=== PATIENT | female | born 1965 | race Caucasian/White ===

== ENCOUNTER → 2017-08-11 | Outpatient (CLI) | payer BC ==
--- NOTE | 2017-08-12 13:33 | MM ---
Reason for exam: screening (asymptomatic). Last mammogram was performed 2 years and 4 months ago. Physical Findings: A clinical breast exam by your physician is recommended on an annual basis and results should be correlated with mammographic findings. MG Screening Mammo w CAD Bilateral CC and MLO view(s) were taken. Prior study comparison: April 16, 2015, mammogram, performed at [facility]. October 20, 2013, mammogram, performed at [facility]. June 10, 2012, mammogram. No significant changes when compared with prior studies. ASSESSMENT: Benign, BI-RAD 2 RECOMMENDATION: Routine screening mammogram of both breasts in 1 year.
== END | disposition home or self-care (01) ==
LOC: RADMAMWWP 15:01
PROVIDERS: ATTEND Family Medicine
DX: Z12.31 Encounter for screening mammogram for malignant neoplasm of breast (principal)
CPT/HCPCS: 77067

== ENCOUNTER → 2019-05-26 | Outpatient (CLI) | payer BC ==
--- NOTE | 2019-05-26 15:42 | US ---
EXAMINATION TYPE: US pelvis complete transvag DATE OF EXAM: 05/26/2019 COMPARISON: NONE CLINICAL HISTORY: R10.2 pelvic and perineal pain. Hx ablation- irregular bleeding. Patient states paige ving pain that shoots down leg. TECHNIQUE: Transvaginal (TV) and Transabdominal (TA) . Transabdominal sonographic images of the pel vis were acquired. Transvaginal sonographic images were medically necessary to better assess the fol lowing anatomy: Ovaries Date of LMP: Unknown, EXAM MEASUREMENTS: Uterus: 8.9 x 4.7 x 3.0 cm Endometrial Stripe: 0.3m Left Ovary: 2.1 x 1.4 x 1.5 cm 1. Uterus: Anteverted Multiple lesions seen through out uterus. Largest measured. Fundal region - 2.3 x 1.7 x 1.5 cm. Mid uterus - 1.6 x 1.5 x 1.1 cm 2. Endometrium: limited visualization 3. Right Ovary: Obscured by overlying bowel gas 4. Left Ovary: appears heterogenous. 5. Bilateral Adnexa: wnl 6. Posterior cul-de-sac: no free fluid Cervix- nabothian cysts IMPRESSION: 1. Leiomyomatous change of the uterus.
== END | disposition home or self-care (01) ==
LOC: RADUSWWP 14:47
PROVIDERS: ATTEND Family Medicine
DX: D25.9 Leiomyoma of uterus, unspecified (principal)
CPT/HCPCS: 76830; 76856

== ENCOUNTER → 2019-06-27 | Outpatient (CLI) | payer BC ==
--- NOTE | 2019-06-29 08:49 | MM ---
Reason for exam: screening (asymptomatic). Last mammogram was performed 1 year and 10 months ago. History: Took hormonal contraceptives for 5 years. Physical Findings: A clinical breast exam by your physician is recommended on an annual basis and results should be correlated with mammographic findings. MG 3D Screening Mammo W/Cad Bilateral CC and MLO view(s) were taken. Prior study comparison: August 11, 2017, bilateral MG screening mammo w CAD. April 16, 2015, mammogram, performed at [facility]. The breast tissue is heterogeneously dense. This may lower the sensitivity of mammography. New areas of asymmetric density, primarily on the CC views, are present likely secondary to patient's reported weight loss. Further evaluation is recommended. No clear correlate on the MLO views. ASSESSMENT: Incomplete: need additional imaging evaluation, BI-RAD 0 RECOMMENDATION: Special view mammogram of both breasts. (3D) If lesion persists on supplemental views, image directed ultrasound is recommended. [facility] will attempt to contact patient to return for supplemental views and ultrasound if indicated.
== END | disposition home or self-care (01) ==
LOC: RADMAMWWP 16:42
PROVIDERS: ATTEND Family Medicine
DX: Z12.31 Encounter for screening mammogram for malignant neoplasm of breast (principal)
CPT/HCPCS: 77063; 77067

== ENCOUNTER → 2019-07-07 | Outpatient (CLI) | payer BC ==
--- NOTE | 2019-07-07 16:00 | MM ---
Reason for exam: additional evaluation requested from abnormal screening. Last mammogram was performed less than 1 month ago. History: Took hormonal contraceptives for 5 years. Physical Findings: Nurse did not find any significant physical abnormalities on exam. MG 3D Work Up W/Cad LATASHA Bilateral spot compression CC view(s) were taken. LM view(s) were taken of the right breast. ML view(s) were taken of the left breast. Prior study comparison: June 27, 2019, bilateral MG 3d screening mammo w/cad. August 11, 2017, bilateral MG screening mammo w CAD. The breast tissue is heterogeneously dense. This may lower the sensitivity of mammography. No significant new findings when compared with previous films. These results were verbally communicated with the patient and result sheet given to the patient on 07/07/19. ASSESSMENT: Probably benign, BI-RAD 3 RECOMMENDATION: Follow-up diagnostic mammogram of both breasts in 6 months.
== END | disposition home or self-care (01) ==
LOC: RADMAMWWP 14:57
PROVIDERS: ATTEND Family Medicine
DX: R92.8 Other abnormal and inconclusive findings on diagnostic imaging of breast (principal)
CPT/HCPCS: 77062; 77066

== ENCOUNTER 2019-08-17 10:17 | Emergency (ER) | payer BC ==
[2019-08-17 10:33] VITALS: TEMP 98.5
[2019-08-17] MEDS ORDERED: SODIUM CHLORIDE 0.9% 1,000 ML IV STA (10:45)
--- NOTE | 2019-08-17 10:53 | ED ---
General Adult HPI - General Chief complaint: Upper Respiratory Infection Stated complaint: Flu Symptoms Time Seen by Provider: 08/17/19 10:36 Source: patient Mode of arrival: ambulatory Limitations: no limitations - History of Present Illness Initial comments: Patient is a 54-year-old female presenting to emergency Department with the chief complaint of flu symptoms. Patient states symptoms began yesterday with a sore throat and a nonproductive cough. States she also had a fever at home which she was able to control with Tylenol and Motrin. Patient states this when she felt weak with generalized body aches. Patient states she contacted EMS. Denies any dizziness or light headedness at this moment. Patient is a smoker. No history of asthma. No chest pain shortness of breath back and abdominal pain nausea vomiting diarrhea. No blurry vision, onesided weakness or paresthesias - Related Data Home Medications Medication Instructions Recorded Confirmed Thyroid,Pork [Nature-Throid] 65 mg PO DAILY 11/20/14 11/20/14 Previous Rx's Medication Instructions Recorded Ciprofloxacin HCl [Cipro] 500 mg PO Q12HR #14 tablet 11/20/14 Phenazopyridine [Pyridium] 100 mg PO TID #6 tablet 11/20/14 Oseltamivir [Tamiflu] 75 mg PO Q12HR #10 cap 08/17/19 Allergies Allergy/AdvReac Type Severity Reaction Status Date / Time Penicillins Allergy Rash/Hives Verified 08/17/19 10:27 Sulfa (Sulfonamide Allergy Unknown Verified 08/17/19 10:27 Antibiotics) Review of Systems ROS Statement: Those systems with pertinent positive or pertinent negative responses have been documented in the HPI. ROS Other: All systems not noted in ROS Statement are negative. Past Medical History Past Medical History: Thyroid Disorder History of Any Multi-Drug Resistant Organisms: None Reported Past Surgical History: Section Past Psychological History: No Psychological Hx Reported Smoking Status: Current every day smoker Past Alcohol Use History: None Reported Past Drug Use History: None Reported General Exam Limitations: no limitations General appearance: alert, in no apparent distress Head exam: Present: atraumatic, normocephalic, normal inspection Eye exam: Present: normal appearance, PERRL, EOMI Pupils: Present: normal accommodation ENT exam: Present: normal exam, normal oropharynx, mucous membranes moist, TM's normal bilaterally, normal external ear exam Neck exam: Present: normal inspection, full ROM Respiratory exam: Present: normal lung sounds bilaterally. Absent: respiratory distress, wheezes, rales Cardiovascular Exam: Present: regular rate, normal rhythm, normal heart sounds Extremities exam: Present: normal inspection, full ROM Back exam: Present: normal inspection, full ROM Neurological exam: Present: alert, oriented X3 Psychiatric exam: Present: normal affect, normal mood Skin exam: Present: warm, dry, intact, normal color Course Vital Signs 08/17/19 10:27 Temperature 98.5 F Pulse Rate 79 Respiratory 18 Rate Blood Pressure 116/73 O2 Sat by Pulse 99 Oximetry Medical Decision Making - Medical Decision Making Patient is 54-year-old female presenting to the emergency family with a chief complaint of flu symptoms. Physical examination is unremarkable. Chest x-ray is unremarkable. Patient is influenza A positive. Patient given 1 L bolus fluids. Patient reports improvement in symptoms. Patient discharged with Tamiflu. Advised to alternate between Tylenol and Motrin for antipyretic control. She was advised to drink lots of liquids. Return parameters discussed with patient was understanding and agreeable. Case discussed with physician. - Lab Data Lab Results 08/17/19 Range/Units 10:45 Influenza Type A RNA Detected H (Not Detectd) Influenza Type B (PCR) Not Detected (Not Detectd) Disposition Clinical Impression: Cough with fever, Influenza Disposition: HOME SELF-CARE Condition: Stable Additional Instructions: Take prescribed medication as directed. Alternate between Tylenol and Motrin for fever control. Make sure to drink lots of liquids. Return to emergency department if symptoms worsen. Prescriptions: Oseltamivir [Tamiflu] 75 mg PO Q12HR #10 cap Is patient prescribed a controlled substance at d/c from ED?: No Referrals: Nonstaff,Physician [REFERRING] - 1-2 days Time of Disposition: 11:52
--- NOTE | 2019-08-17 11:09 | XR ---
EXAMINATION TYPE: XR chest 2V DATE OF EXAM: 08/17/2019 COMPARISON: NONE HISTORY: Cough and fever since yesterday. TECHNIQUE: Frontal and lateral views of the chest are obtained. FINDINGS: There is no focal air space opacity, pleural effusion, or pneumothorax seen. The cardiac silhouette size is within normal limits. The osseous structures are intact. Overlying EKG leads are present. IMPRESSION: No suspicious acute infiltrate.
[2019-08-17 12:20] VITALS: BP 104/77; PULSE 85; RESP 16
== END 2019-08-17 12:20 | disposition home or self-care (01) ==
LOC: EC 10:17
DX: J10.1 Influenza due to other identified influenza virus with other respiratory manifestations (principal); E07.9 Disorder of thyroid, unspecified; F17.200 Nicotine dependence, unspecified, uncomplicated; Z79.890 Hormone replacement therapy; Z88.0 Allergy status to penicillin; Z88.2 Allergy status to sulfonamides
CPT/HCPCS: 71046; 87502; 96360; 99284

== ENCOUNTER → 2019-11-07 | Outpatient (CLI) | payer BC ==
--- NOTE | 2019-11-07 16:02 | US ---
EXAMINATION TYPE: US mass soft tissue chest/back DATE OF EXAM: 11/07/2019 COMPARISON: NONE CLINICAL HISTORY: R22.2 localized swelling, mass and lump. FINDINGS: Targeted grayscale ultrasound was performed of the left lower back at the area of patient's palpable abnormality. No sonographic abnormality seen at this time. No sonographic cystic or solid m ass. IMPRESSION: No sonographic abnormality to correspond to the patient's palpable abnormality. CT with palpable BB marker placement could be considered if there is further concern.
== END | disposition home or self-care (01) ==
LOC: RADUSWWP 15:14
PROVIDERS: ATTEND Family Medicine
DX: R22.2 Localized swelling, mass and lump, trunk (principal)

== ENCOUNTER → 2019-12-07 | Outpatient (CLI) | payer BC ==
--- NOTE | 2019-12-07 08:37 | CT ---
EXAMINATION TYPE: CT lumbar spine wo/w con DATE OF EXAM: 12/07/2019 COMPARISON: HISTORY: Lumbar mass CT DLP: 860.9 mGycm Automated exposure control for dose reduction was used. CONTRAST: CT scan of the lumbar is performed without and with IV Contrast, patient injected with 100 mL of Isov ue 300. Enhanced CT of the lumbar spine was performed. Bone and soft tissue window settings are submitted as well as coronal and sagittal reconstructions. L1-L2: Normal disc space height. No disc herniation protrusion or central stenosis. No facet joint arthropathy. No evidence for foraminal encroachment. L2-L3: Normal disc space height. No disc herniation protrusion or central stenosis. No facet joint arthropathy. No evidence for foraminal encroachment. L3-L4: Normal disc space height. No disc herniation protrusion or central stenosis. No facet joint arthropathy. No evidence for foraminal encroachment. L4-L5: Mild degenerative disc space narrowing is noted at this level. Grade 1 anterolisthesis of 2 mm related to severe facet joint arthropathy. No evidence for spondylolysis. Posterior disc bulge with effacement of the ventral thecal sac resulting in mild central stenosis. Bilateral foraminal encroach ment noted. L5-S1: Severe disc desiccation noted with early vacuum disc. Posterior disc bulge. No evidence for ce ntral stenosis or disc herniation. At the site of clinical concern there is evidence of lipoma. IMPRESSION: 1. Central stenosis at L4-5 as discussed above. 2. Lipoma at the site of clinical concern.
== END | disposition home or self-care (01) ==
LOC: RADCTMAIN 07:33
PROVIDERS: ATTEND Family Medicine
DX: M48.061 Spinal stenosis, lumbar region without neurogenic claudication (principal); D17.79 Benign lipomatous neoplasm of other sites
CPT/HCPCS: 72133; Q9967

== ENCOUNTER → 2020-10-30 | Outpatient (CLI) | payer BC ==
--- NOTE | 2020-10-31 09:00 | MM ---
Reason for exam: additional evaluation requested from prior study. Last mammogram was performed 1 year and 4 months ago. History: Took hormonal contraceptives for 5 years. Physical Findings: Nurse did not find any significant physical abnormalities on exam. MG 3D Diag Mammo W/Cad LATASHA Bilateral CC and MLO view(s) were taken. Prior study comparison: July 07, 2019, bilateral MG 3d work up w/cad LATASHA. June 27, 2019, bilateral MG 3d screening mammo w/cad. The breast tissue is heterogeneously dense. This may lower the sensitivity of mammography. These results were verbally communicated with the patient and result sheet given to the patient on 10/30/20. ASSESSMENT: Benign, BI-RAD 2 RECOMMENDATION: Routine screening mammogram of both breasts in 1 year.
== END | disposition home or self-care (01) ==
LOC: RADMAMWWP 15:05
PROVIDERS: ATTEND Family Medicine
DX: R92.2 Inconclusive mammogram (principal)
CPT/HCPCS: 77062; 77066

== ENCOUNTER → 2021-10-15 | Outpatient (CLI) | payer BC ==
--- NOTE | 2021-10-15 16:20 | MR ---
EXAMINATION TYPE: MR lumbar spine wo con DATE OF EXAM: 10/15/2021 COMPARISON: CT 12/17/2019 HISTORY: 56-year-old female M54.16, lumbar region radiculopathy, low back pain radiculopathy right LE TECHNIQUE: Multiplanar, multisequence images of the lumbar spine were acquired without IV contrast. FINDINGS: Vertebral body heights are preserved. Mildly diminished marrow signal suggesting red marrow hyperplasia. This can be seen with anemia, obes ity, smoking, and chronic disease. Some focal mixed Modic type I and type II endplate changes are present anteriorly at T11-T12 related to some focal degenerative disc disease. Fatty Modic type II endplate change at L5-S1 where there is moderate degenerative disc disease with desiccated, narrowed, and bulging disc. Mild degenerative dis c disease L3-L4 and L4-L5. Advanced hypertrophic facet arthropathy mid to lower lumbar spine especially severe at L4-L5 with gra de 1 anterolisthesis and ligamentum flavum thickening. The degree of bulging disc and ligamentum flav um thickening may be increased from prior CT. Remaining alignment is maintained. Conus medullaris is normal. At T12-L1, no spinal canal or foraminal stenosis. At L1-L2, no spinal canal or foraminal stenosis. At L2-L3, minimal posterior disc bulge. No significant canal or foraminal stenosis. At L3-L4, minimal disc bulge. Mild facet arthropathy. Minimal ligamentum flavum thickening. No signif icant canal or foraminal stenosis. At L4-L5, severe hypertrophic facet arthropathy with associated small facet joint effusions. Ligament um flavum thickening. Degenerative grade 1 anterolisthesis with bulging disc. There is overall mild s [place] canal stenosis with moderate left greater than right neuroforaminal stenosis. At L5-S1, facet arthropathy and mild bulging disc. There is mild left and moderate to severe right ne uroforaminal stenosis. No prevertebral or paravertebral soft tissue abnormality seen. IMPRESSION: 1. Moderate to severe degenerative disc disease L5-S1 along with facet arthropathy. Changes result in moderate to severe right neural foraminal stenosis and mild on the left. 2. Severe hypertrophic facet arthropathy with ligamentum flavum thickening, degenerative grade 1 ante rolisthesis, and disc bulge at L4-L5. The degree of ligamentum flavum thickening has increased from 2 020. There are also small facet joint effusions at this level, likely reactive to the advanced facet arthropathy. Mild overall spinal canal stenosis here. Moderate left greater than right neuroforaminal stenosis. 3. Mild degenerative disc disease elsewhere in the lumbar spine.
== END | disposition home or self-care (01) ==
LOC: RADMRIMAIN 14:55
PROVIDERS: ATTEND Family Medicine
DX: M48.061 Spinal stenosis, lumbar region without neurogenic claudication (principal); M51.16 Intervertebral disc disorders with radiculopathy, lumbar region; M47.26 Other spondylosis with radiculopathy, lumbar region; M43.16 Spondylolisthesis, lumbar region
CPT/HCPCS: 72148

== ENCOUNTER 2022-01-20 09:08 | Day surgery (SDC) | payer BC ==
[2022-01-19 10:03] VITALS: BMI 26.8
[~2022-01-20 09:08] MED LIST: LACTATED RINGERS 1,000 ML IV SCH; LIDOCAINE 1% (10MG/ML) FOR IV START INTRADERMA PRN
[2022-01-20 09:47] VITALS: RESP 16; TEMP 97
[2022-01-20] MEDS ORDERED: PROPOFOL 10 MG/ML 20 ML VIAL IV ONE (10:13)
--- NOTE | 2022-01-20 10:39 | P.PCN ---
Date of Procedure: 01/20/22 Procedure(s) Performed: BRIEF HISTORY: Patient is a 56-year-old pleasant white female scheduled for an elective colonoscopy as a part of screening for colorectal neoplasia. PROCEDURE PERFORMED: Colonoscopy. PREOPERATIVE DIAGNOSIS: Screening for colon cancer. IV sedation per Anesthesia. PROCEDURE: After informed consent was obtained, the patient, was brought into the endoscopy unit. IV sedation was administered by Anesthesia under continuous monitoring. Digital rectal examination was normal. Initially the Olympus CF-160 flexible video colonoscope was then inserted in the rectum, gradually advanced into the cecum without any difficulty. Careful examination was performed as the scope was gradually being withdrawn. Ileocecal valve and the appendiceal orifice were visualized and appeared normal. Prep was excellent. Mucosa of the cecum, ascending colon, transverse colon, descending colon, sigmoid colon, and rectum appeared normal. Retroflexion was performed in the rectum and no lesions were seen. The patient tolerated the procedure well. IMPRESSION: Normal-appearing colon from rectum to cecum with no evidence of colorectal neoplasia. RECOMMENDATIONS: Findings of this examination were discussed with the patient as well as her family. She was advised to have a repeat screening colonoscopy in 10 years..
[2022-01-20 11:02] VITALS: BP 120/76; PULSE 75
== END 2022-01-20 11:32 | disposition home or self-care (01) ==
LOC: ORWHC2ENDO 09:08
PROVIDERS: ATTEND Internal Medicine Gastroenterology
DX: Z12.11 Encounter for screening for malignant neoplasm of colon (principal)
CPT/HCPCS: 81025; G0121; J2704

== ENCOUNTER → 2022-03-31 | Outpatient (CLI) | payer BC ==
--- NOTE | 2022-03-31 15:58 | CT ---
EXAMINATION TYPE: CT sinus wo con DATE OF EXAM: 03/31/2022 COMPARISON: NONE HISTORY: Sinus pressure. Headaches, eye watering. CT DLP: 624.2 mGycm. Automated Exposure Control for Dose Reduction was Utilized. TECHNIQUE: CT scan of the sinuses is performed without contrast, axial images are obtained, coronal r eformatted images are also reviewed. FINDINGS: Mild to minimal posterior mucosal thickening left sphenoid sinus. Remainder of the paranasa l sinuses are clear without abnormal opacification or air-fluid levels. There are hypoplastic or non- formed bilateral frontal sinuses noted The ostiomeatal complex is patent bilaterally on the coronal images. Visualized portion of mastoid air cells show no abnormal opacification. The globes are intact bilate rally. Visualized brain parenchyma is within normal limits. Persistent anterior metopic suture seen w hich is normal variant. IMPRESSION: No acute sinusitis. Paranasal sinuses remain grossly clear.
--- NOTE | 2022-03-31 16:14 | US ---
EXAMINATION TYPE: US transvaginal DATE OF EXAM: 03/31/2022 COMPARISON: NONE CLINICAL HISTORY: N93.9 ABNORMAL UTERINE AND VAGINAL BLEEDING, UNSPE. Ablation 5 years ago. Intermitt ent spotting for 2 months TECHNIQUE: Transvaginal (TV). Date of LMP: unknown EXAM MEASUREMENTS: Uterus: 8.0 x 4.5 x 5.4 cm Endometrial Stripe: n/a Right Ovary: 3.2 x 2.8 x 2.2 cm Left Ovary: unable to visualize 1. Uterus: Anteverted extremely heterogeneous. complex fluid collection within cervix. Nabothian c ysts. Uterine Fibroids noted with largest = 2.2 x 1.6 x 1.8cm 2. Endometrium: unable to clearly visualize due to heterogenous myometrium 3. Right Ovary: dominant follicle = 2.0cm 4. Left Ovary: Obscured by overlying bowel gas 5. Bilateral Adnexa: wnl 6. Posterior cul-de-sac: appears wnl IMPRESSION: 1. Heterogenous fluid collection within the endometrial canal. 2. Uterine fibroids. 3. Right ovarian cyst measuring 2 cm. Follow-up examination in 6 weeks is recommended to reevaluate t he cyst.
== END | disposition home or self-care (01) ==
LOC: RADUSWWP 14:56
PROVIDERS: ATTEND Family Medicine
DX: J34.89 Other specified disorders of nose and nasal sinuses (principal); D25.9 Leiomyoma of uterus, unspecified; N83.201 Unspecified ovarian cyst, right side
CPT/HCPCS: 70486; 76830

== ENCOUNTER → 2024-07-28 | Outpatient (CLI) | payer BC ==
--- NOTE | 2024-07-28 09:38 | MM ---
Reason for Exam: Screening (asymptomatic). Last mammogram was performed 3 year(s) and 8 month(s) ago. Patient History: Menarche at age 16. First Full-Term at age 23. Patient used Hormonal Contraceptives for 5 years. Last menstrual period: Risk Values: Cecily 5 year model risk: 1.0%. NCI Lifetime model risk: 6.5%. Prior Study Comparison: 06/27/2019 Bilateral Screening Mammogram, [facility]. 07/07/2019 Bilateral Diagnostic Mammogram, [facility]. 10/30/2020 Bilateral Diagnostic Mammogram, [facility]. Tissue Density: There are scattered areas of fibroglandular density. Findings: Analyzed By CAD. Right breast: There is no suspicious group of microcalcifications or new suspicious mass. Left breast: There is no suspicious group of microcalcifications or new suspicious mass. Overall Assessment: Negative, BI-RAD 1 Management: Screening Mammogram of both breasts in [address] [facility] will attempt to contact patient to return for supplemental views and ultrasound if indicated. Patient should continue monthly self-breast exams. A clinical breast exam by your physician is recommended on an annual basis. This exam should not preclude additional follow-up of suspicious palpable abnormalities. Note on Cecily scores and lifetime risk: 1. A Cecily score greater than 3% is considered moderate risk. If this is the case, consider specialist referral to assess eligibility for a risk reducing agent. 2. If overall lifetime risk for the development of breast cancer is 20% or higher, the patient may qualify for future screening with alternating mammogram and breast MRI. [facility], , 07/28/2024 9:31 AM. Electronically signed and approved by: Hilario Luke DO
== END | disposition home or self-care (01) ==
LOC: RADMAMWWP 09:14
PROVIDERS: ATTEND Family Medicine
DX: Z12.31 Encounter for screening mammogram for malignant neoplasm of breast (principal); R92.323 Mammographic fibroglandular density, bilateral breasts; Z92.0 Personal history of contraception
CPT/HCPCS: 77063; 77067